=== PATIENT | female | born 1930 | race Caucasian/White ===

== ENCOUNTER → 2016-06-06 | Outpatient (CLI) | payer OTHER ==
[~2016-06-06] MED LIST: AMLO5 PO; CARV25TA PO; ECOT81TA2 PO; GUAI400T8 PO; LORT10TA PO; MULTTAB4 PO; OMEGCAP21 PO; PAXI20TA PO; PLAV75TA PO; PROT40TA PO; TEMA15 PO
[2016-06-06 13:35] LABS: BLOOD GAS BASE EXCESS 0.2 mmol/L (-2-2); BLOOD GAS CARBOXYHEMOGLOBIN 1.7 % (0-4); BLOOD GAS HCO3 24 mmol/L (22-26); BLOOD GAS METHEMOGLOBIN 1.3 % (0-2); BLOOD GAS O2 HGB SATURATION 91 % (90-100); BLOOD GAS OXYGEN CONTENT 12.4 Vol % (12.0-20.0); BLOOD GAS PCO2 40 mmHg (38-42); BLOOD GAS PO2 72 mmHg (61-120); BLOOD GAS TOTAL HGB 9.6 G/DL (12.0-16.0); TEMP CORR TO 98.6
[2016-06-06 13:36] LABS: CRITICAL VALUE NO; DRAW SITE RT RADIAL; FIO2 21 %; NUMBER OF ARTERIAL PUNCTURES 1; STAT NO; ULNAR PULSE PRESENT
--- NOTE | 2016-06-10 12:39 | RSPPFT ---
DATE OF PROCEDURE: 06/06/16 COMMENTS: Spirometry shows FVC of 1.3 at 63% of predicted, FEV1 of 0.9 at 70%, FEV1/FVC ratio is normal. Flow is decreased at FEF 25, FEF 50, FEF 75 and FEF 25-75. There is a mild response after bronchodilator treatment. Lung volumes show residual volume is increased. TLC is normal. Diffusion capacity is moderately decreased. Flow volume loop indicates an obstructive pattern. IMPRESSION: 1. Mild obstructive lung disease. 2. Good response after bronchodilator treatment. 3. Lung volumes show hyperinflation. 4. Moderate loss in diffusion capacity.
== END ==
LOC: HRSP 13:10
PROVIDERS: ATTEND Specialist
DX: J44.9 Chronic obstructive pulmonary disease, unspecified (principal)
CPT/HCPCS: 36600; 82805; 94060; 94726; 94729

== ENCOUNTER 2017-01-20 11:35 | Observation (INO) | payer OTHER ==
[~2017-01-20] VITALS: Ht 154.9 cm; Wt 56.6 kg
[~2017-01-20 11:35] MED LIST changes: +ALBU0.63 NEB; +AMLO10TA2 PO; -AMLO5 PO; +ASPI1TAB57 PO; +CHLOR50 PO; -ECOT81TA2 PO; -GUAI400T8 PO; +LEVO25TA4 PO; -LORT10TA PO; +LOSA100T PO; +MELO15TA20 PO; +MULTTAB24 PO; -MULTTAB4 PO; -OMEGCAP21 PO; +PANT40TA3 PO; +PARO20TA3 PO; -PAXI20TA PO; -PLAV75TA PO; -PROT40TA PO; -TEMA15 PO; +TEMA15CA PO
[2017-01-20] MEDS ORDERED: DEXAMETHASONE SOD PHOS 4 MG/ML VIAL IV ONE (12:00)
[2017-01-20] MEDS ORDERED: LIDOCAINE HCL 1% PF 5 ML AMPULE OTHER ONE (12:00)
[2017-01-20] MEDS ORDERED: MIDAZOLAM HCL 2 MG/2 ML VIAL IV ONE (12:00)
[2017-01-20] MEDS ORDERED: PROPOFOL 200 MG/20 ML AMP IV ONE (12:00)
[2017-01-20] MEDS ORDERED: ONDANSETRON HCL 4 MG/2 ML VIAL IV PUSH ONE (12:00)
[2017-01-20] MEDS ORDERED: METOPROLOL TARTRATE 25 MG TAB PO PRN (12:30)
[2017-01-20] MEDS ORDERED: CHLORHEXIDINE GLUCONATE 2 % 1 PACK (2 CLOTHS) TOPICAL PRN (12:30)
[2017-01-20] MEDS ORDERED: POVIDONE IODINE 5% (ANTISEPSIS KIT) 4 APPLICATIONS EACH NARE PRN (12:30)
[2017-01-20] MEDS ORDERED: SODIUM CHLORID 0.9% 500 ML IV PRN (12:30)
[2017-01-20] MEDS ORDERED: INSULIN HUMAN REGULAR 1,000 UNITS/10 ML VIAL SQ PRN (12:30)
[2017-01-20] MEDS ORDERED: LACTATED RINGER'S 1000 ML IV PRN (12:30)
[2017-01-20] MEDS ORDERED: GLYC1AER INH (13:18)
[2017-01-20] MEDS ORDERED: LIDOCAINE 1%/EPINEPHrine 1:100,000 SOLN 20 ML VIAL ONE (14:16)
[2017-01-20] MEDS ORDERED: FERRIC SUBSULFATE 8 ML TOP SOLN TOPICAL ONE (15:19)
[2017-01-20] MEDS ORDERED: DO NOT ADM ANY ANTICOAGULANT DRUGS PRN (15:34)
[2017-01-20] MEDS: D5-1/2 NS + KCL 20 MEQ INJ 1,000 ML IV SCH (15:54)
[2017-01-20] MEDS ORDERED: RESP: ALBUTEROL 0.63 MG/3 ML NEB (PRN) NEB (16:00)
[2017-01-20] MEDS ORDERED: oxyCODONE/ACETAMINOPHEN 5 MG/325 MG TAB PO PRN (16:00)
[2017-01-20] MEDS ORDERED: TEMAZEPAM 15 MG CAP PO PRN (16:00)
[2017-01-20] MEDS ORDERED: diphenhydrAMINE HCL 25 MG CAP PO PRN (16:00)
[2017-01-20] MEDS ORDERED: SODIUM CHLORIDE 0.9% FLUSH 10 ML FLUSH IV FLUSH PRN (16:00)
[2017-01-20] MEDS ORDERED: ONDANSETRON HCL 4 MG/2 ML VIAL IVP PRN (16:00)
[2017-01-20] MEDS ORDERED: ACETAMINOPHEN 325 MG TAB PO PRN (17:15)
[2017-01-20 20:20] VITALS: BP 176/69; PULSE 54; RESP 18; TEMP 97.5; O2SAT 98
[2017-01-20] MEDS: SODIUM CHLORIDE 0.9% FLUSH 10 ML FLUSH IV FLUSH SCH (21:00)
[2017-01-20] MEDS ORDERED: [UNRECOGNIZED DRUG - OTHER] INH SCH (21:00)
[2017-01-20 21:14] VITALS: PULSE 50
[2017-01-20] MEDS: CARVEDILOL 12.5 MG TAB PO SCH (21:51)
[2017-01-20 22:21] VITALS: O2SAT 96
[2017-01-21] VITALS (7 sets, daily range): BP systolic 138–165; BP diastolic 60–69; PULSE 37–51; RESP 16–18; TEMP 97.4–97.5; O2SAT 94–97
[2017-01-21 05:46] LABS: AUTOMATED NEUTROPHIL # 3.1 TH/MM3 (1.8-7.7); BASOPHIL % 0.3 % (0.0-2.0); EOSINOPHIL % 0.1 % (0.0-4.0); LYMPH % 23.2 % (9.0-44.0); MEAN CELL VOLUME 94.1 FL (80.0-100.0); MEAN CORPUSCULAR HEMOGLOBIN 31.8 PG (27.0-34.0); MEAN CORPUSCULAR HGB CONC 33.8 % (32.0-36.0); MONO % 7.9 % (0.0-8.0); NEUT % 68.5 % (16.0-70.0); PLATELET COUNT 160 TH/MM3 (150-450); RED BLOOD COUNT 2.98 MIL/MM3 (4.00-5.30); RED CELL DISTRIBUTION WIDTH 17.6 % (11.6-17.2); WHITE BLOOD COUNT 4.5 TH/MM3 (4.0-11.0)
[2017-01-21 05:51] LABS: HEMO FLAGS AUTO DIFF
[2017-01-21 06:12] LABS: BICARBONATE 26.2 MEQ/L (21.0-32.0); POTASSIUM 3.9 MEQ/L (3.5-5.1)
[2017-01-21] MEDS: D5-1/2 NS + KCL 20 MEQ INJ 1,000 ML IV SCH (06:14)
--- NOTE | 2017-01-21 06:39 | MP ---
cc: RUDOLPH GRIMALDO M.D., KELLY L. MD DEVERAS, RUBY ANNE E. M.D. DATE OF SURGERY 01/20/2017 PREOPERATIVE DIAGNOSES 1. Postmenopausal bleeding. 2. Uterine mass with fluid in the endometrial cavity. 3. Retained IUD with possible perforation into the wall of the uterus. POSTOPERATIVE DIAGNOSES 1. Postmenopausal bleeding. 2. Uterine mass with fluid in the endometrial cavity. 3. Retained IUD with possible perforation into the wall of the uterus. 4. 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 PROCEDURE Examination under anesthesia, fractional dilation and curettage, removal of IUD. SURGEON Shannon Sousa MD PRINTING PRESS OPERATOR [place] instructional assistant. ANESTHESIA General endotracheal anesthesia. ESTIMATED BLOOD LOSS 100 cc. INDICATIONS This is an 86-year-old female with postmenopausal bleeding of uncertain duration found on exam and imaging to have a central pelvic mass that had a thickened wall and fluids centrally that anatomically seemed to correlate with dilated uterus with fluid in the cavity. There was a metallic-appearing object at the edge of the imaging that looked like it may be partially imbedded into the uterine wall. By history she had a previous IUD and does not remember ever having it removed making the possibility of an indwelling IUD. She was counseled regarding the need for further evaluation regarding this mass and the bleeding. She was in favor of moving forward with the exam, dilation and curettage and removal of the IUD if feasible. She is seen in the preop holding area prior to the procedure where these findings and recommendations are again reviewed. Questions were answered. She expressed good understanding and agreed. FINDINGS On exam under anesthesia there is no appreciably enlarged inguinal lymph nodes. External genitalia without mass or lesion. Vaginal mucosa appears normal. The cervix seems somewhat flush with the vaginal apex. The cervix is dilated and there is abnormal-appearing tissue coming through the endocervical os that does not seem to be arising necessarily from the endocervical os, but passing down from the endometrium above. There is what appears to be the string of an IUD visible through the cervix in the vagina. The uterine cavity sounds to 11 cm and upon curetting of both the endocervix and the endometrium a large volume of polypoid necrotic neoplastic-appearing tissue is obtained. Frozen section of this tissue shows a poorly differentiated carcinoma. Also after dilation of the cervix and traction on the string the IUD was removed without difficulty. There was moderate amount of bleeding for a D&C, a little bit of bright red blood, some old blood and appears as though the fluid in the endometrial cavity was mostly old blood. Also noted in the curetting was a 2 or 3-mm nodule of what appeared to be fat raising the possibility of a carcinosarcoma with some adipose differentiation or the possibility that the IUD had created a small perforation in the uterine wall. After this little bit of fat was noted, curetting was discontinued as cautious dilation and curetting ensured no perforation at the time of the procedure and the bleeding subsided almost immediately. PROCEDURE She was taken to the operating room and placed in dorsal lithotomy position after laryngeal mask anesthesia was administered. Time-out was undertaken. She was identified by sight recognition and hospital ID bracelet and the proposed procedure was reviewed and confirmed. She was carefully positioned in lithotomy position, prepped and draped in sterile fashion. In-and-out catheterization of the bladder was performed after an exam under anesthesia had been performed with findings as described above. The cervix was grasped, put on countertraction. Some tissue was obtained that was extruding through the endocervical os and sent for frozen section analysis and an endocervical curetting was performed to obtain additional tissue. The uterus was sounded carefully to 11 cm. The cervix was then dilated and countertraction was placed on the string which allowed delivery of the IUD without resistance. Circumferential curetting was carried out cautiously through the endometrium with a large volume of tissue obtained with findings as described above. Frozen section came back showing the poorly differentiated carcinoma. It was felt that all reasonable surgical objectives had been completed. The old blood and small amount of active bleeding subsided. Monsel's solution was placed in the cervix and endocervix to assist in local hemostasis. Pelvic exam confirmed there were no remaining foreign objects in the vagina, good hemostasis. Preliminary and final counts were correct. She was returned to dorsal supine position and was pending reversal of anesthesia when I left the operating room to precede her to the Post-Anesthesia Care Unit and to speak to family members who were waiting in the surgical family waiting area. MD BLANCA Love/MINNA /5:14 AM /6:26 AM
[2017-01-21 06:41] LABS: BANDS 5 % (0-6); NEUTROPHIL # MANUAL DIFF 3.4 TH/MM3 (1.8-7.7); OVALOCYTES 1+ (NORMAL); PLATELET ESTIMATE SMEAR NORMAL (NORMAL); PLATELET MORPHOLOGY NORMAL (NORMAL); POLYS (SEG NEUTROPHILS) 70 % (16-70); SCAN/DIFF FINAL DIFF MANUAL; WBC DIFF SAMPLE 100
[2017-01-21 06:42] LABS: KERATOCYTES OCC (NORMAL)
--- NOTE | 2017-01-21 08:19 | MD ---
cc: RUDOLPH GRIMALDO M.D., KELLY L. MD DEVERAS, RUBY ANNE E. M.D. ADMISSION DATE: 01/20/2017 DISCHARGE DATE: 01/21/2017 [place] Visit Search.Discharge Date PROCEDURE 01/20/2017 Fractional dilation and curettage, removal of foreign object from the uterus (IUD). HOSPITAL COURSE She did well in the early post-op period, remained hemodynamically stable. Sequential evaluation of hemoglobin and hematocrit remained stable. Tolerating oral intake. Bonilla removed, pending voiding. Ins and outs 1440/760. LABORATORY Pre-op hemoglobin was 9.5. Hemoglobin and hematocrit last night were 10.3 and 31; this morning are 9.5 and 28. She has baseline elevated creatinine; this morning slightly elevated at 1.06. The rest of her electrolytes are essentially normal. PHYSICAL EXAMINATION VITAL SIGNS: Afebrile. Pulse isolated 37, otherwise 45-49. A baseline EKG showed resting bradycardia. Blood pressure maintained at 138-140/60-69. O2 saturations greater than or equal to 97% while awake. GENERAL: She is alert and oriented x3. ABDOMEN: Soft. LUNGS: Clear. CARDIOVASCULAR: Slow regular rate and rhythm. MANAGER ACTUARIAL: No active bleeding. ASSESSMENT Post-op day #1 status post dilation and curettage, removal of IUD, stable overnight. Preliminary pathology discussed. Activities and restrictions reviewed. Questions were asked and answered. She expressed good understanding. PLAN I anticipate discharge to home today. She is to resume her prior medications except we asked that she stop aspirin in anticipation of possible forthcoming surgery, the details of which and scheduling will be addressed. Our office number is again made available. She is to contact our office should she have any questions or problems. MD BLANCA Love/LUKAS /7:13 AM /8:15 AM
[2017-01-21] MEDS ORDERED: PARoxetine HCL 20 MG TAB PO SCH (09:00)
[2017-01-21] MEDS: SODIUM CHLORIDE 0.9% FLUSH 10 ML FLUSH IV FLUSH SCH (09:00)
[2017-01-21] MEDS ORDERED: LOSARTAN 50 MG TAB PO SCH (09:00)
[2017-01-21] MEDS ORDERED: CHLORTHALIDONE 50 MG TAB PO SCH (09:00)
[2017-01-21] MEDS ORDERED: LEVOTHYROXINE SODIUM 25 MCG TAB PO SCH (09:00)
[2017-01-21] MEDS ORDERED: PANTOPRAZOLE SOD 40 MG DELAYED RELEASE TAB PO SCH (09:00)
[2017-01-21] MEDS: CARVEDILOL 12.5 MG TAB PO SCH (09:00)
[2017-01-21] MEDS ORDERED: MELOXICAM 15 MG TAB PO SCH (09:00)
== END 2017-01-21 11:25 | disposition home or self-care (01) ==
LOC: HSDC 11:35 → HSDI 16:04 → HCIN 20:04
PROVIDERS: ADMIT Obstetrics & Gynecology Gynecologic Oncology; ATTEND Obstetrics & Gynecology Gynecologic Oncology
DX: N95.0 Postmenopausal bleeding (principal); R19.00 Intra-abdominal and pelvic swelling, mass and lump, unspecified site; Z97.5 Presence of (intrauterine) contraceptive device; C53.9 Malignant neoplasm of cervix uteri, unspecified
CPT/HCPCS: 00952; 58558; 80048; 85007; 85014; 85018; 85027; 86850; 86900; 86901; 88305; 88331; 94150; 96365; 96366; G0378; J1100; J2250; J2405; J3010; J3480; J7120; 88300

== ENCOUNTER 2017-01-26 05:34 | Observation (INO) | payer OTHER ==
[2017-01-26] VITALS (8 sets, daily range): BP systolic 118–135; BP diastolic 43–54; PULSE 55–66; RESP 17–20; TEMP 98.9–100.3; O2SAT 92–100
[~2017-01-26] VITALS: Ht 154.9 cm; Wt 57.3 kg
[~2017-01-26 05:34] MED LIST changes: -ASPI1TAB57 PO; +GLYC1AER INH
[2017-01-26] MEDS ORDERED: POVIDONE IODINE 5% (ANTISEPSIS KIT) 4 APPLICATIONS EACH NARE PRN (06:15)
[2017-01-26] MEDS ORDERED: LACTATED RINGER'S 1000 ML IV PRN (06:15)
[2017-01-26] MEDS ORDERED: CHLORHEXIDINE GLUCONATE 2 % 1 PACK (2 CLOTHS) TOPICAL PRN (06:15)
[2017-01-26] MEDS ORDERED: METOPROLOL TARTRATE 25 MG TAB PO PRN (06:15)
[2017-01-26] MEDS ORDERED: HEPARIN SODIUM - SQ 10,000 UNITS/ML VIAL SQ SCH (06:15)
[2017-01-26] MEDS ORDERED: SODIUM CHLORID 0.9% 500 ML IV PRN (06:15)
[2017-01-26] MEDS ORDERED: FISHCAP4 PO (06:35)
[2017-01-26] MEDS ORDERED: ASPI-516 CHEW (06:35)
[2017-01-26] MEDS ORDERED: LIDOCAINE 1%/EPINEPHrine 1:100,000 SOLN 20 ML VIAL ONE (06:39)
[2017-01-26] MEDS: ceFAZolin 1,000 MG/NS 100 ML IV SCH ×4 (07:07→11:01)
[2017-01-26] MEDS ORDERED: ACETAMINOPHEN 1000 MG/100 ML 100 ML IV ONE (07:53)
[2017-01-26] MEDS ORDERED: SUGAMMADEX SODIUM 200 MG/2 ML VIAL IV PUSH ONE ×2 (07:53)
[2017-01-26] MEDS ORDERED: METHYLENE BLUE 10 MG/ML VIAL OTHER ONE (09:19)
[2017-01-26] MEDS ORDERED: ceFAZolin INJ 1,000 MG VIAL IV ONE ×2 (11:00→12:00)
[2017-01-26] MEDS ORDERED: DO NOT ADM ANY ANTICOAGULANT DRUGS PRN (11:18)
[2017-01-26] MEDS ORDERED: TEMAZEPAM 15 MG CAP PO PRN (11:30)
[2017-01-26] MEDS ORDERED: ONDANSETRON HCL 4 MG/2 ML VIAL IVP PRN (11:30)
[2017-01-26] MEDS ORDERED: LORazepam 0.5 MG TAB PO PRN (11:30)
[2017-01-26] MEDS ORDERED: diphenhydrAMINE HCL 25 MG CAP PO PRN (11:30)
[2017-01-26] MEDS ORDERED: oxyCODONE/ACETAMINOPHEN 5 MG/325 MG TAB PO PRN ×2 (11:30)
[2017-01-26] MEDS ORDERED: SODIUM CHLORIDE 0.9% FLUSH 10 ML FLUSH IV FLUSH PRN (11:30)
[2017-01-26] MEDS: D5-1/2 NS + KCL 20 MEQ INJ 1,000 ML IV SCH (11:45)
[2017-01-26] MEDS ORDERED: ONDANSETRON HCL 4 MG/2 ML VIAL IV PUSH ONE (12:00)
[2017-01-26] MEDS ORDERED: NORMOSOL R INJ 1,000 ML IV ONE (12:00)
[2017-01-26] MEDS ORDERED: GLYCOPYRROLATE 1 MG/5 ML SYRINGE IV PUSH ONE (12:00)
[2017-01-26] MEDS ORDERED: hydrALAZINE HCL 20 MG/ML VIAL IV ONE (12:00)
[2017-01-26] MEDS ORDERED: MIDAZOLAM HCL 2 MG/2 ML VIAL IV ONE (12:00)
[2017-01-26] MEDS ORDERED: LIDOCAINE HCL 1% PF 5 ML AMPULE OTHER ONE (12:00)
[2017-01-26] MEDS ORDERED: VECURONIUM BROMIDE 20 MG VIAL IV ONE (12:00)
[2017-01-26] MEDS ORDERED: ROCURONIUM INJ 50 MG/5 ML SYRINGE IV PUSH ONE (12:00)
[2017-01-26] MEDS ORDERED: PROPOFOL 200 MG/20 ML AMP IV ONE (12:00)
[2017-01-26] MEDS ORDERED: DEXAMETHASONE SOD PHOS 4 MG/ML VIAL IV ONE (12:00)
[2017-01-26] MEDS ORDERED: NEOSTIGMINE 3 MG/3 ML SYR IV ONE (12:00)
[2017-01-26] MEDS ORDERED: ePHEDrine/NS 25 MG/5 ML SYR IV ONE (12:00)
[2017-01-26] MEDS ORDERED: STERILE WATER FOR INJECTION 20 ML VIAL IV ONE (12:00)
[2017-01-26] MEDS: KETOROLAC TROMETHAMINE 30 MG/ML (IVP) VIAL IVP SCH ×3 (13:15→23:14)
[2017-01-26] MEDS: RESP: ALBUTEROL 2.5 MG/3 ML NEB (SCH) NEB ×3 (16:00→23:48)
[2017-01-26] MEDS ORDERED: GLYCOPYRROLATE INH SCH (21:00)
[2017-01-26] MEDS ORDERED: FORMOTEROL INH SCH (21:00)
[2017-01-26] MEDS: CARVEDILOL 12.5 MG TAB PO SCH (23:13)
[2017-01-26] MEDS: SODIUM CHLORIDE 0.9% FLUSH 10 ML FLUSH IV FLUSH SCH (23:14)
[2017-01-27] VITALS (7 sets, daily range): BP systolic 131–135; BP diastolic 53–57; PULSE 51–84; RESP 16–18; TEMP 98.8–99.3; O2SAT 92–99
[2017-01-27] MEDS: D5-1/2 NS + KCL 20 MEQ INJ 1,000 ML IV SCH (00:32)
[2017-01-27] MEDS: RESP: ALBUTEROL 2.5 MG/3 ML NEB (SCH) NEB ×3 (04:44→12:00)
[2017-01-27] MEDS: KETOROLAC TROMETHAMINE 30 MG/ML (IVP) VIAL IVP SCH (05:44)
[2017-01-27] MEDS ORDERED: LEVOTHYROXINE SODIUM 25 MCG TAB PO SCH (06:00)
[2017-01-27 06:51] LABS: BASOPHIL % 0.1 % (0.0-2.0); EOSINOPHIL % 0.4 % (0.0-4.0); HEMATOCRIT 24.1 % (35.0-46.0); HEMO FLAGS DIFF FINAL; LYMPH % 13.5 % (9.0-44.0); MEAN CELL VOLUME 93.9 FL (80.0-100.0); MEAN CORPUSCULAR HEMOGLOBIN 31.8 PG (27.0-34.0); MEAN CORPUSCULAR HGB CONC 33.9 % (32.0-36.0); MONO % 6.7 % (0.0-8.0); NEUT % 79.3 % (16.0-70.0); PLATELET COUNT 154 TH/MM3 (150-450); RED BLOOD COUNT 2.56 MIL/MM3 (4.00-5.30); RED CELL DISTRIBUTION WIDTH 18.4 % (11.6-17.2); WHITE BLOOD COUNT 7.6 TH/MM3 (4.0-11.0)
[2017-01-27 07:15] LABS: BICARBONATE 25.3 MEQ/L (21.0-32.0); POTASSIUM 3.9 MEQ/L (3.5-5.1)
[2017-01-27] MEDS ORDERED: OXYC1TAB63 PO (07:27)
[2017-01-27] MEDS ORDERED: Sulfamet-Trimet 800-160 Mg Liq PO (07:37)
[2017-01-27] MEDS: CARVEDILOL 12.5 MG TAB PO SCH (08:07)
[2017-01-27] MEDS ORDERED: LOSARTAN 50 MG TAB PO SCH (09:00)
[2017-01-27] MEDS ORDERED: CHLORTHALIDONE 50 MG TAB PO SCH (09:00)
[2017-01-27] MEDS ORDERED: SULFAMETHOXAZOLE-TRIMETHOPRIM 800-160 MG/20 ML UDC PO SCH (09:00)
[2017-01-27] MEDS ORDERED: PARoxetine HCL 20 MG TAB PO SCH (09:00)
[2017-01-27] MEDS: SODIUM CHLORIDE 0.9% FLUSH 10 ML FLUSH IV FLUSH SCH (09:00)
[2017-01-27] MEDS ORDERED: PANTOPRAZOLE SOD 40 MG DELAYED RELEASE TAB PO SCH (09:00)
--- NOTE | 2017-01-27 09:07 | MP ---
cc: ANTONIO SOUSA MD DATE OF SURGERY 01/26/2017 PREOPERATIVE DIAGNOSIS High-grade clear cell endometrial adenocarcinoma. POSTOPERATIVE DIAGNOSES 1. High-grade clear cell endometrial adenocarcinoma. 2. Pelvic adhesions. PROCEDURE Robotic-assisted laparoscopic hysterectomy, bilateral salpingo-oophorectomy, lysis of adhesions. SURGEON Antonio Sousa MD LEAD LEVEL DESIGNER [place] environmental engineering assistant. ANESTHESIA General endotracheal anesthesia. ESTIMATED BLOOD LOSS 200 cc IV FLUIDS 1000 cc URINE OUTPUT 250 cc HISTORY An 86-year-old female with postmenopausal bleeding, recently underwent a D&C, found to have a clear cell adenocarcinoma arising from the endometrium. She was counseled regarding these findings, recommended surgery and she is in favor of that procedure. She is seen again in the preop holding area where she and her family are again counseled. She expressed good understanding and would like to proceed with surgery, minimal invasive with the laparoscopy robotics if possible. FINDINGS The uterine cavity sounded to 11 cm. The uterus was symmetrically enlarged. There were small surface leiomyomas. The tubes and ovaries grossly appeared normal. There was no overt evidence of disease beyond the uterus. There were no appreciably enlarged pelvic or paraaortic lymph nodes. The peritoneal surfaces were smooth. There were no peritoneal implants. The liver diaphragm edges were smooth. The omentum, small and large bowel with adjacent mesentery appeared normal without implants. The ileocecal region was adherent to the right pelvic sidewall and the sigmoid colon was adherent to the left pelvic sidewall with surrounding adhesions due to her prior diverticulitis and the bladder was somewhat adherent to the lower uterine segment and cervix. The uterus once removed, showed the tumor to be approximately 2 cm in diameter. It was at the junction between the lower uterine segment near the cervix; it invaded into the myometrium more than usp, approximately 7 mm out of a 12 mm myometrium. She was taken to the operating room, placed in dorsal lithotomy position. General endotracheal anesthesia was adminstered. Time-out was undertaken. She was identified by sight recognition and hospital ID brace and the proposed procedure was reviewed and confirmed. She was carefully positioned in padded Manpreet stirrups. Her arms were padded and secured to her sides. She was further secured to the operating room table with eggcrate padding and tape in across-chest, [id number] fashion. All sites were noted to be properly aligned, no malalignments or pressure points. She was prepped and draped in sterile fashion, placed in high lithotomy position. The cervix was grasped, the uterine cavity sounded. The cervix was further dilated and a large V-Care manipulator was inserted and secured in the usual fashion, Bonilla catheter placed in the bladder. She was returned to low lithotomy position. Change of sterile gloves was undertaken, confirmed that an orogastric airway was in the stomach on suction. Manual elevation of the abdominal wall improved laparoscopic visualization. A 5-mm cannula was introduced into the left upper abdomen and atraumatic entry was confirmed, carbon dioxide gas was insufflated. A 12-mm cannula was placed in the midline above the umbilicus, an 8-mm cannula placed in the right upper abdomen and left upper abdomen and the original 5-mm cannula was exchanged for an 8-mm cannula. The anatomy was explored with the findings as described above. Peritoneal washings were obtained for cytology. The small bowel was folded back on its mesenteric root and she was placed in steep Trendelenburg position and the three Ray-Randy sponges were placed at the root of the small bowel mesentery. The robotic system was brought onto the operative field and attached in the usual fashion. Monopolar scissors, fenestrated bipolar forceps and ProGrasp manipulators were placed in arms #1, 2, 3 respectively and I took my place at the surgeon's console. The right round ligament was isolated, cauterized, transected. The anterior and posterior leaves of the broad ligament were opened. The right ureter was identified. The right infundibulopelvic ligament was isolated. The intervening peritoneum was opened. The infundibulopelvic ligament was isolated to the level of the pelvic brim and cauterized and transected. The posterior peritoneum was opened along the right side of the uterus and cervix. The right vesicouterine peritoneum was dissected off the lower uterine segment and cervix after adhesions were lysed to mobilize the bladder flap and adhesions had been lysed with sharp dissection, immobilizing the ileocecal region to gain access to the right pelvic sidewall. The right uterine vessels were skeletonized and cauterized. Attention was directed toward the left side. Lysis of adhesions was carried out to mobilize the colon from its attachments against the left pelvic sidewall where it was obscuring access to the left pelvic sidewall. Cul-de-sac adhesions were taken down and the colon was mobilized medially. The left round ligament was isolated, cauterized, transected. The anterior and posterior leaves of the broad ligament were opened. The left ureter was identified. The left infundibulopelvic ligament was isolated. The intervening peritoneum was opened. The infundibulopelvic ligament was isolated to the level of the pelvic brim where it was cauterized and transected. The posterior peritoneum was opened along the left side of the uterus and cervix and the left vesicouterine peritoneum was dissected off the lower uterine segment and cervix with lysis of adhesions to mobilize the bladder flap and the left uterine vessels were skeletonized. The left uterine vessels were cauterized and transected as were the cardinal, paracervical and uterosacral ligaments. Attention was now directed to the right side and now the right uterine vessels were transected. The cardinal, paracervical and uterosacral ligaments were isolated, cauterized and transected in a stepwise fashion. Circumferential colpotomy was performed. The specimen was removed transvaginally which included uterus, cervix, tubes and ovaries and the pneumooccluder balloon was placed in the vagina to maintain pneumoperitoneum. Instruments 1 and 3 were exchanged for needle drivers as the 0 Vicryl suture was introduced. The vaginal cuff was closed starting at the left corner, a full-thickness closure incorporating the edge of the uterosacral ligament, posterior peritoneum and tied via instrument tie. The suture was held on countertraction as the running, continuous, full-thickness closure was run across the vaginal apex to the contralateral corner where it was similarly affixed, secured and tied. The needle was cut and removed. The integrity of the bladder was confirmed by filling the bladder with saline dyed with methylene blue. 200 cc were used to fill the bladder under pressure. There was a good margin between the edge of the bladder and the vaginal cuff suture line. Good peristalsis of the ureters bilaterally and, whereas the bladder wall was attached there was some thinning of the overlying fat in the dome and the lower portion of the bladder and this was reinforced surgically. 3-0 Vicryl suture was introduced and the overlying fat and peritoneum of the bladder was reapproximated and secured with a running 3-0 Vicryl suture tied via instrument ties. The needle was cut and removed. The bladder was refilled with saline dyed with methylene blue, distended nicely under pressure. There remains no extravasation of dye and no longer any visible areas where the overlying tissue was thin and the bladder was drained. Careful inspection and palpation of the pelvic lymph node regions and paraaortic lymph node regions was undertaken and in the paraaortic and pericaval regions there were no areas to suggest enlarged lymph nodes. In the right pelvis, however, there were two prominences along the distal iliac vessels that appeared possibly to represent enlarged lymph nodes. The perivesical, obturator and perirectal spaces were developed. The incision was carried down retroperitoneally to identify these lymph nodes and further dissection revealed it just to be two prominent areas of adipose tissue. In both cases, dissection did not reveal any lymphatic tissue. Given that she is 86 years old with multiple comorbidities and no gross evidence of disease outside the uterus, it was felt that all reasonable surgical objections in this individual had been completed. Accordingly, the robotic instruments were removed after the pelvis was thoroughly irrigated and Lincoln hemostatic agent was placed across the dissection bed. The robotic system had been disengaged from the operative field. I re-entered the bedside under sterile conditions. Each of the three Ray-Randy sponges which had been placed in the peritoneum were removed; each were inspected and noted to be removed in their entirety. Counts were correct and there were no remaining foreign objects in the peritoneal cavity. The 12-mm fascial defect was closed with interrupted 0 Vicryl sutures using a fascial needle closure apparatus, tied securely and rendered the fascia completely air-tight and hemostatic. The remaining cannulae were withdrawn. Carbon dioxide gas was removed from the peritoneal cavity. 3-0 Vicryl subcutaneous, 3-0 Vicryl subcuticular and Steri-Strips were used to close the skin incisions. She was returned to dorsal lithotomy position. Pelvic exam confirmed that the vaginal cuff was well supported and hemostatic. However, there were posterior vaginal lacerations related to the transvaginal delivery of the large uterine specimen and this area was rendered hemostatic with interrupted [id number] 2-0 Vicryl sutures and by oversewing the midportion of the vaginal cuff. All sites were now hemostatic. The vagina was irrigated. The remaining Lincoln hemostatic agent was placed in the vagina. Otherwise there were no other remaining foreign objects in the vagina. Preliminary and final counts were correct. She was returned to dorsal spine position and was pending reversal of anesthesia when I left the operating room to precede her to the post-anesthesia care unit. Antonio Sousa MD KM/SSB /5:08 PM /8:32 AM
--- NOTE | 2017-01-28 07:59 | MD ---
cc: RUDOLPH GRIMALDO M.D., KELLY L. MD DEVERAS, RUBY ANNE E. M.D. ADMISSION DATE: 01/26/2017 DISCHARGE DATE: 01/27/2017 PROCEDURE 01/26/2017, robotic-assisted laparoscopic hysterectomy, bilateral salpingo-oophorectomy, lysis of adhesions. DIAGNOSIS Endometrial cancer HOSPITAL COURSE She did well in the early postoperative period. Hemodynamically stable tolerating oral intake. The Bonilla was left indwelling due to some oversewing adjacent to the bladder. OBJECTIVE In's and out's 1279/850. LABS H&H 8.2 and 24.1. It was noted that preop prior to DC last week was 9.5 and so these changes are consistent with blood loss and fluid equilibration. Electrolytes potassium 3.9, BUN and creatinine 27 and 1.38. She has elevated creatinine at baseline going back to even 2012 and a creatinine of 1.35 is identified. PHYSICAL EXAMINATION She is afebrile, pulse 56-84, respirations 16, blood pressure 131-133 over 53-56, O2 saturations greater than equal to 94% while asleep, 99% while awake. GENERAL: Alert, oriented x3 in no acute distress. LUNGS: Clear except for mild basilar rales. CARDIOVASCULAR: Regular rate and rhythm. ABDOMEN: Soft. Incisions clean and dry. STUDENT DEVELOPMENT COORDINATOR: No bleeding. EXTREMITIES: Nontender. ASSESSMENT Postop day #1, findings at the time of surgery, preliminary pathology, activities and restrictions discussed. Questions were answered. She expressed a good understanding. PLAN I anticipate she will be able to be discharged to home today. She is to contact our office to schedule follow up in one week for postop check and removal of Bonilla catheter. An overview of self care with request for nursing education is made and given instructions on self-care. She is to resume prior medications. She will have a prescription for Percocet and she will have a prescription for daily suppressive antibiotics while she has the indwelling Bonilla catheter. She and her family expressed a good understanding and agreed. MD BLANCA Love/DONI /7:35 AM /8:03 AM
== END 2017-01-27 13:40 | disposition home or self-care (01) ==
LOC: HSDC 05:34 → HSDI 11:30 → HCIN 12:43
PROVIDERS: ADMIT Obstetrics & Gynecology Gynecologic Oncology; ATTEND Obstetrics & Gynecology Gynecologic Oncology
DX: C54.1 Malignant neoplasm of endometrium (principal); N95.0 Postmenopausal bleeding; R06.02 Shortness of breath; N73.6 Female pelvic peritoneal adhesions (postinfective)
CPT/HCPCS: 00840; 58552; 80048; 85025; 86850; 86900; 86901; 86920; 88309; 88331; 94150; 94640; 94664; 96361; 96374; 96376; G0378; J0131; J0360; J0690; J1100; J1644; J1885; J2250; J2405; J2710; J3010; J3480; J7120; J7613; 88307

== ENCOUNTER 2017-05-01 08:05 | Day surgery (SDC) | payer OTHER ==
[~2017-05-01] VITALS: Ht 154.9 cm; Wt 54.5 kg
[~2017-05-01 08:05] MED LIST changes: -ALBU0.63 NEB; +ASPI-516 CHEW; +FISHCAP4 PO; +OXYC1TAB63 PO; +Sulfamet-Trimet 800-160 Mg Liq PO
[2017-05-01 08:15] VITALS: BP 147/69; PULSE 54; RESP 20; TEMP 97.8; O2SAT 93
[2017-05-01] MEDS ORDERED: SERT-129 PO (08:23)
[2017-05-01] MEDS ORDERED: SODIUM CHLOR 0.9% 1000 ML IV SCH (08:45)
[2017-05-01] MEDS ORDERED: LIDOCAINE HCL 1% 20 ML VIAL ONE (08:46)
[2017-05-01 09:03] LABS: AUTOMATED NEUTROPHIL # 4.6 TH/MM3 (1.8-7.7); BASOPHIL # 0.1 TH/MM3 (0-0.2); BASOPHIL % 0.8 % (0.0-2.0); EOSINOPHIL # 0.2 TH/MM3 (0-0.4); EOSINOPHIL % 3.5 % (0.0-4.0); HEMOGLOBIN 9.9 GM/DL (11.6-15.3); LYMPH % 19.3 % (9.0-44.0); LYMPHOCYTE # 1.3 TH/MM3 (1.0-4.8); MEAN CELL VOLUME 93.9 FL (80.0-100.0); MEAN CORPUSCULAR HGB CONC 34.1 % (32.0-36.0); MEAN PLATELET VOLUME 10.6 FL (7.0-11.0); MONO % 7.6 % (0.0-8.0); MONOCYTE # 0.5 TH/MM3 (0-0.9); NEUT % 68.8 % (16.0-70.0); PLATELET COUNT 201 TH/MM3 (150-450); RED BLOOD COUNT 3.08 MIL/MM3 (4.00-5.30); RED CELL DISTRIBUTION WIDTH 18.2 % (11.6-17.2); WHITE BLOOD COUNT 6.8 TH/MM3 (4.0-11.0)
[2017-05-01] MEDS ORDERED: MIDAZOLAM HCL 2 MG/2 ML VIAL ONE (09:20)
--- NOTE | 2017-05-01 09:46 | PD.RAD ---
Post CT Procedure Prog Note Pre Procedure Diagnosis: (1) Anemia Post Procedure Diagnosis: (1) Anemia Procedure Date: May 01, 2017 Supervising Radiologist: Derek Owusu Anesthesia: Conscious Sedation Plan of Activity Patient to Unit: [facility] Patient Condition: Good See PACS Report for procedural detail/treatment Derek Owusu MD May 01, 2017 09:46
[2017-05-01 10:00] VITALS: BP 122/48; PULSE 50; RESP 16; TEMP 97.5; O2SAT 96
[2017-05-01 10:15] VITALS: BP 118/51; PULSE 47; RESP 16; O2SAT 92
--- NOTE | 2017-05-01 10:28 | RADRPT ---
EXAM DATE/TIME: 05/01/2017 09:24 [place] COMPARISON: No previous studies available for comparison. INDICATIONS : Anemia. SEDATION TIME: 30 minutes BIOPSY SITE: Right iliac MEDICATION(S): 1.) 2 mg midazolam (Versed) IV 2.) 100 mcg fentanyl (Sublimaze) IV DEVICE(S): 1.) 11 gauge Bone marrow biopsy needle MEDICAL HISTORY : Hypertension. Uterine cancer SURGICAL HISTORY : Hysterectomy. ENCOUNTER: Initial ACUITY: 1 day PAIN SCORE: 0/10 LOCATION: Right pelvis A total of one core specimen(s) were obtained and sent to the laboratory for pathologic evaluation. PROCEDURE: 1. CT guided bone marrow biopsy. 2. Conscious sedation with continuous EKG and oximetry monitoring. Prior to the procedure informed consent was obtained. Any appropriate prior imaging studies were rev iewed. Using automated exposure control and adjustment of the mA and/or kV according to patient size , radiation dose was kept as low as reasonably achievable to obtain optimal diagnostic quality images . DICOM format image data is available electronically for review and comparison. The site was prepped in a sterile fashion. Full sterile technique was used, including cap, mask, marcos rile gloves and gown and a large sterile sheet. Hand hygiene and 2% chlorhexidine and/or betadine/al cohol prep was utilized per protocol for cutaneous antisepsis. The skin and subcutaneous tissues wer e infiltrated with local anesthetic solution. With CT guidance the previously identified target was localized. Biopsy was performed using the presc ribed needle as above. Following biopsy marrow aspiration was performed with repeat puncture. Adequa te hemostasis was obtained with compression at the puncture site. Follow-up CT scan reveals no hemorrhage. Conscious sedation was performed with the prescribed dosages and duration as above in the presence of an independent trained radiology nurse to assist in the monitoring of the patient. EKG and oximetry remained stable throughout the procedure. The patient tolerated the procedure well and there were no complications. The patient was sent to Radiology Outpatient Unit in stable condition. CONCLUSION: 1. Uncomplicated CT guided bone marrow aspirate. 2. Uncomplicated CT guided bone marrow biopsy. Derek Owusu MD on May 01, 2017 at 10:25 Board Certified Radiologist. This report was verified electronically.
[2017-05-01 10:30] VITALS: BP 119/52; PULSE 51; RESP 16; O2SAT 95
[2017-05-01 11:00] VITALS: BP 114/48; PULSE 52; RESP 16; O2SAT 97
[2017-05-01 11:30] VITALS: BP 111/44; PULSE 49; RESP 16; O2SAT 97
== END 2017-05-01 12:05 | disposition home or self-care (01) ==
LOC: HRAD 08:05 → HRIP 08:05 → HRAD 12:05
PROVIDERS: ATTEND Internal Medicine Hematology & Oncology
DX: D64.9 Anemia, unspecified (principal); C53.9 Malignant neoplasm of cervix uteri, unspecified; I10 Essential (primary) hypertension
CPT/HCPCS: 38222; 77012; 85025; 85097; 88184; 88185; 88237; 88264; 88280; 88305; 88311; 88313; 99152; 99153; C1830; J2250; J3010; 38221